=== PATIENT | male | born 1995 | race Caucasian/White ===

== ENCOUNTER 2017-10-25 04:36 | Emergency (ER) | payer SELFPAY ==
[~2017-10-25] VITALS: Ht 165.1 cm; Wt 65.8 kg
--- NOTE | 2017-10-25 04:36 | NUR ---
Patient BIB [facility] for pre-booking medical screening exam, transferred to chair E. RN evaluating patient.
[2017-10-25 04:38] VITALS: BP 134/72
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
[2017-10-25 04:49] VITALS: BP 134/72
--- NOTE | 2017-10-25 04:49 | NUR ---
Patient discharged with v/s stable. Written and verbal after care instructions given and explained. Patient verbalized understanding. Ambulatory with in custody OF P. All questions addressed prior to discharge. Advised to follow up with PMD.
== END 2017-10-25 04:49 ==
LOC: MED 04:36
DX: Z02.89 Encounter for other administrative examinations (principal); T23.102A Burn of first degree of left hand, unspecified site, initial encounter; R03.0 Elevated blood-pressure reading, without diagnosis of hypertension; V49.40XA Driver injured in collision with unspecified motor vehicles in traffic accident, initial encounter; Y93.89 Activity, other specified; Y92.488 Other paved roadways as the place of occurrence of the external cause; Y99.8 Other external cause status
CPT/HCPCS: 99283